=== PATIENT | female | born 1990 | race African-American/Black ===

== ENCOUNTER 2019-03-31 18:07 | Emergency (ER) | payer BC, OTHER ==
[2019-03-31] MEDS ORDERED: traMADol HCl 50 MG TAB ONE (18:33)
[2019-03-31] MEDS ORDERED: Ibuprofen 800 MG TAB ONE (18:33)
--- NOTE | 2019-03-31 18:56 | RAD ---
RIGHT WRIST 3 VIEWS: HISTORY: Right wrist pain, injury FINDINGS: No acute fracture or dislocation is identified. If symptoms do not improve, a follow-up exam should be obtained in 7-10 days.
== END 2019-03-31 18:54 | disposition home or self-care (01) ==
LOC: BURERS 18:07
DX: S30.0XXA Contusion of lower back and pelvis, initial encounter (principal); S63.501A Unspecified sprain of right wrist, initial encounter; Z79.899 Other long term (current) drug therapy; W17.89XA Other fall from one level to another, initial encounter

== ENCOUNTER 2023-10-21 13:32 | Emergency (ER) | payer OTHER ==
[2023-10-21 14:28] LABS: SARS-CoV-2 E Target Positive; SARS-CoV-2 N2 Target Positive; SARS-CoV-2 NAA Rapid Test DETECTED (NotDetected); SARS-CoV-2 RdRP gene Positive
== END 2023-10-21 14:16 | disposition home or self-care (01) ==
LOC: BURERS 13:32
DX: B34.9 Viral infection, unspecified (principal)
CPT/HCPCS: 87804; 99283; U0002